=== PATIENT | male | born 1975 | race Caucasian/White ===

== ENCOUNTER 2020-11-24 02:05 | Outpatient (CLI) | payer BC, SELFPAY ==
--- NOTE | 2020-11-24 08:15 | DI.RAD_ITS ---
EXAM: XR CERVICAL SPINE COMP 4-5V CLINICAL HISTORY: Point tenderness on the L posterior neck,m54.2. TECHNIQUE: 2D digital imaging was performed. COMPARISON: No exams were available for comparison FINDINGS: BONES: No fracture or destructive lesion. Vertebral bodies are unremarkable. There are mild facet delia int degenerative changes. No neural foraminal narrowing is seen. DISKS: Intervertebral disc spaces are maintained. There are minimal endplate osteophytes. ALIGNMENT: Cervical spinal alignment is within normal limits. The odontoid and atlantoaxial articulat ions are normal. SOFT TISSUE: Normal. The lung apices are clear. The airway appears normal. IMPRESSION: Minimal degenerative changes. DATA REPOSITORY: RADIATION DOSE DELIVERED:
== END 2020-11-24 02:25 ==
PROVIDERS: Visit Provider Family Medicine
DX: M47.812 Spondylosis without myelopathy or radiculopathy, cervical region (principal)
CPT/HCPCS: 72050

== ENCOUNTER 2024-10-14 18:18 | Outpatient (REF) | payer BC, SELFPAY ==
[2024-10-14 21:39] LABS: Source Nasal/Nares
[2024-10-14 22:22] LABS: COVID-19 PCR Negative (Negative)
== END 2024-10-14 18:19 | disposition home or self-care (01) ==
LOC: LBN 18:18
PROVIDERS: PCP Family Medicine; Visit Provider Nurse Practitioner Family
DX: Z11.9 Encounter for screening for infectious and parasitic diseases, unspecified (principal)
CPT/HCPCS: 87635